=== PATIENT | female | born 1985 | race Two or more races ===

== ENCOUNTER 2018-01-31 20:03 | Emergency (ER) | payer BC, OTHER ==
--- NOTE | 2018-01-31 21:52 | ER Document Report ---
ED ENT - General Chief Complaint: Sinus Pain Stated Complaint: SINUS ISSUES Time Seen by Provider: 01/31/18 20:44 Mode of Arrival: Ambulatory Information source: Patient TRAVEL OUTSIDE OF THE [place] IN LAST 30 DAYS: No - HPI Patient complains to provider of: Other - SINUS PAIN, NASAL CONGESTION, VERTIGO Notes: Patient is here with complaints of sinus congestion, vertigo. States that she has had sinus congestion for over a month now. She has been doing sinus rinses and also takes daily Singulair. She states that over the last week she has had a lot more sinus pain that she had been having over the last several weeks. Today while at work she blew her nose and that she had a sudden onset of dizziness. She states that it resolved. 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 She denies any dizziness currently. No headache or blurred vision. No unilateral numbness, tingling, weakness. No chest pain or shortness of breath. No fever. No nausea , vomiting, diarrhea. No rash. She is not on blood thinning medications. No other complaints at this time. - Related Data Allergies/Adverse Reactions: cetirizine [From Zyrtec] Allergy (Verified 01/31/18 20:21) diphenhydramine HCl [From Benadryl Allergy] Allergy (Verified 11/29/15 09:15) loratadine [From Claritin] Allergy (Verified 01/31/18 20:21) Past Medical History - Social History Smoking Status: Unknown if Ever Smoked Family History: Reviewed & Not Pertinent - Immunizations Hx Diphtheria, Pertussis, Tetanus Vaccination: Yes Review of Systems - Review of Systems -: Yes All other systems reviewed and negative Physical Exam - Notes Notes: GENERAL: alert, cooperative, nontoxic, no distress. HEAD: normocephalic, atraumatic EYES: conjunctiva pink without discharge, no external redness or swelling. Pupils are equal, round, reactive to light. EARS: no external swelling, no external redness. TMs pearly byrnes with normal landmarks and no perforation. No edema. Effusion behind both TMs. NOSE: atraumatic, no external swelling. Significant nasal congestion noted. Nasal turbinates swollen. Purulent drainage noted. Tenderness to percussion of the sinuses. MOUTH/THROAT: mucous membranes moist and pink, posterior pharynx without erythema, swelling, exudate. No trismus or drooling. NECK: soft, supple, full range of motion, no meningismus. CHEST: no distress, lungs clear and equal throughout. No wheezing, rales, rhonchi. CARDIAC: regular rate and rhythm, no murmur, normal capillary refill, normal pulses. No peripheral edema noted. BACK: full range of motion, no CVA tenderness. EXTREMITIES: full range of motion of all extremities. No redness, no swelling. NEURO: alert and oriented x 3, cranial nerves II through XII are grossly intact. Upper and lower extremities are equal throughout. Normal sensation. No focal deficits, full range of motion of all extremities. normal finger to nose. PYSCH: appropriate mood, affect. Patient is cooperative. SKIN: pink, warm, dry, no rash. Course - Re-evaluation Re-evalutation: 01/31/18 21:52 Patient is nontoxic appearing with stable vitals. She is here with complaints of nasal congestion for about a month now. Over the last week it has gotten much worse. Today while at work she blew her nose and had sudden onset dizziness that lasted a few minutes. It resolved on its own. She had one other episode of dizziness when she was leaning over to empty fully bags at the end of her shift. She denies any dizziness now. States that she felt like she was having some vertigo which she has had in the past. She does have chronic sinus problems and again has had sinus congestion for over a month. She does use sinus rinses and takes Singulair. This point her symptoms have significantly worsened and she has sinus tenderness to percussion and likely has an acute sinusitis. I will place her on amoxicillin. I did instructed her to take Flonase as well. I offered her Valium for her vertigo, she declined that at this time. Due to her allergy to antihistamines, I would not recommend that she take meclizine. Patient states that this is fine if she is not having any vertigo now. The patient will be discharged home with a prescription for amoxicillin. Instructions take Tylenol Motrin as needed for pain. Follow-up with her doctor if not better in 1 week, sooner for worsening symptoms, high fever, persistent vomiting, difficulty breathing or swallowing, or for any further concerns. The patient is noted to have elevated blood pressure during today's emergency department visit. The patient was informed of this finding. The patient was instructed that this may be related to pre-hypertension and requires further evaluation with a primary care provider. The patient has no hypertensive symptoms at this time. The patient's emergency department workup and current diagnosis were explained to the patient and or family. Follow-up instructions were provided. Medications if prescribed were discussed. Instructions for when to return to the emergency department including specific worrisome symptoms were discussed with the patient and/or family. Discharge - Discharge Clinical Impression: Acute sinusitis Qualifiers: Sinusitis location: unspecified location Recurrence: non-recurrent Qualified Code(s): J01.90 - Acute sinusitis, unspecified BPV (benign positional vertigo) Qualifiers: Laterality: unspecified laterality Qualified Code(s): H81.10 - Benign paroxysmal vertigo, unspecified ear Condition: Stable Disposition: HOME, SELF-CARE Instructions: Vertigo ([facility]), Sinusitis ([facility]) Additional Instructions: Take medications as prescribed. Use [id number] Flonase as directed. Drink lots of fluids. Tylenol or Motrin as needed for pain. Follow-up if not better in 1 week, sooner for worsening symptoms, high fever, persistent vomiting , constant dizziness, blurred or loss vision, numbness, tingling, weakness, any further concerns. Your blood pressure was elevated during today's visit. Have this rechecked with your doctor. Prescriptions: Amoxicillin 875 mg PO BID #20 tablet Forms: Elevated Blood Pressure, Smoking Cessation Education Referrals: JAKE LANDRY FNP [Primary Care Provider] - Follow up as needed
[2018-01-31 22:32] VITALS: BP 130/94
== END 2018-01-31 22:32 | disposition home or self-care (01) ==
LOC: ER 20:03
DX: J01.90 Acute sinusitis, unspecified (principal); H81.10 Benign paroxysmal vertigo, unspecified ear
CPT/HCPCS: 99283

== ENCOUNTER → 2020-08-29 | Outpatient (CLI) | payer BC, OTHER ==
[~2020-08-29] MED LIST: COVID-19 VACCINE (PFIZER)/PF 30 MCG/0.3 ML VIAL IM ONE; EPINEPHRINE INJ/PF 1 MG/1 ML AMPULE IM PRN
== END ==
LOC: EMPHEALTH 08:21
PROVIDERS: ATTEND Internal Medicine
DX: Z23 Encounter for immunization (principal)
CPT/HCPCS: 91300

== ENCOUNTER → 2020-09-19 | Outpatient (CLI) | payer BC, OTHER | LOC: EMPHEALTH 11:32 | PROVIDERS: ATTEND Internal Medicine | DX: Z23 Encounter for immunization (principal) | CPT/HCPCS: 91300 ==